=== PATIENT | female | born 1950 ===

== ENCOUNTER 2025-07-01 09:27 | Outpatient (CLI) | payer MEDICARE, OTHER | END 2025-07-01 09:28 | disposition home or self-care (01) | LOC: BICMAMMO 09:27 | PROVIDERS: ATTEND Family Medicine | DX: Z13.820 Encounter for screening for osteoporosis (principal); Z78.0 Asymptomatic menopausal state; M85.852 Other specified disorders of bone density and structure, left thigh | CPT/HCPCS: 77080 ==